=== PATIENT | male | born 1980 | race Caucasian/White ===

== ENCOUNTER 2017-01-14 19:56 | Emergency (ER) | payer OTHER ==
[2017-01-14 20:32] VITALS: BP 133/93
[2017-01-14] MEDS ORDERED: Albuterol HFA INHALER* 8 gm MDI INH ONE (21:43)
[2017-01-14] MEDS ORDERED: Azithromycin TAB* 250 MG PO ONE (21:45)
--- NOTE | 2017-01-14 22:30 | UC ---
FLU HPI - HPI Summary HPI Summary: 36 y/o male with h/o TOB use with 2 family members sick with similar symtpoms. Patient states since Sat/ SUn has felt febrile on and off, tactile, dog ate thermometer. + cough, feels "moving into lungs". family member dx'd with PNA. no ear pain, throat pain. No appetite changes, N/V. + body aches, feeling fatigued. - History of Current Complaint Chief Complaint: UCGeneralIllness Stated Complaint: UPPER RESPIRATORY COMPLAINT Time Seen by Provider: 01/14/17 21:16 Hx Obtained From: Patient Onset/Duration: Gradual Onset, Lasting Days Severity Currently: None Severity Initially: Mild Pain Intensity: 0 Pain Scale Used: 0-10 Numeric - Allergy/Home Medications Allergies/Adverse Reactions: Allergies Allergy/AdvReac Type Severity Reaction Status Date / Time No Known Allergies Allergy Verified 01/14/17 20:31 Home Medications: Home Medications Rtknzbvolpnmz-Upzvbnxrpl-[place] [Abril-[place] Plus Day/Nig] 1 alon PO BID PRN [History Confirmed 01/14/17] PMH/Surg Hx/FS Hx/Imm Hx Previously Healthy: Yes - no current meds - Surgical History Surgical History: Yes Surgery Procedure, Year, and Place: LEFT - Social History Alcohol Use: None Substance Use Type: None Smoking Status (MU): Current Every Day Smoker Type: Cigarettes Amount Used/How Often: 1 PPD Length of Time of Smoking/Using Tobacco: 15 YRS Have You Smoked in the Last Year: Yes Review of Systems Constitutional: Fever, Chills, Fatigue Respiratory: Shortness Of Breath, Cough Musculoskeletal: Myalgia Is Patient Immunocompromised?: No All Other Systems Reviewed And Are Negative: Yes Physical Exam Triage Information Reviewed: Yes Appearance: No Pain Distress, Ill-Appearing - mild Vital Signs: Initial Vital Signs Temp 98.4 F 01/14/17 20:25 Pulse 95 01/14/17 20:25 Resp 16 01/14/17 20:25 BP 133/93 01/14/17 20:25 Pulse Ox 100 01/14/17 20:25 Vital Signs Reviewed: Yes Eyes: Positive: Conjunctiva Clear ENT: Positive: Pharynx normal, TMs normal Neck: Positive: Supple, Nontender, No Lymphadenopathy Respiratory: Positive: No respiratory distress, No accessory muscle use, Crackles - L>R, Rhonchi - L>R, Wheezing - L>R, Expiration, Other: - L>R wheezes with inspiration > expiration, + crackles on L, Cardiovascular: Positive: RRR, No Murmur, Pulses Normal Neurological Exam: Normal Psychological Exam: Normal Skin Exam: Normal Flu Course/Dx - Course Course Of Treatment: rapid flu negative, ABX due to wheezing, TOB use, fever. albuterol inhaler for SOB. - Differential Dx/Diagnosis Differential Diagnosis/HQI/PQRI: Bronchitis, Broncholiolitis, Influenza, RSV, Upper Respiratory Infection Provider Diagnoses: bronchitis Discharge - Discharge Plan Condition: Good Disposition: HOME Prescriptions: Azithromyxin ALON (NF) [Z-Alon (Zithromax) 250 mg tabs #6] 2 tab PO .TODAY, THEN 1 DAILY #6 tab Patient Education Materials: Wheezing (ED) Forms: *Work Release Referrals: Marleni Ott DO [Primary Care Provider] - Additional Instructions: - Increase fluids - Antibiotics as directed - first dose given at urgent care- take only 250mg daily for 4 days then stop. - Albuterol for shortness of breath, wheezing - tyelnol/ motrin for body aches, pain, fever
== END 2017-01-14 21:57 | disposition home or self-care (01) ==
LOC: UCCORT 19:56
DX: J40 Bronchitis, not specified as acute or chronic (principal); F17.210 Nicotine dependence, cigarettes, uncomplicated
CPT/HCPCS: 87502; 99202; A9270-GY; G0463